=== PATIENT | female | born 1970 | race Hispanic/Latino ===

== ENCOUNTER 2018-09-05 05:46 | Day surgery (SDC) | payer OTHER ==
[2018-09-05] MEDS ORDERED: LACTATED RINGERS 1,000 ML IV SCH (06:22)
[2018-09-05] MEDS ORDERED: NACL BACTERIOSTATIC INFILTRATI ONE (06:34)
[2018-09-05] MEDS ORDERED: PROVENTIL IH NR (06:59)
[2018-09-05] MEDS ORDERED: VERSED IV NR (07:00)
--- NOTE | 2018-09-05 07:16 | Short Stay Summary ---
Short Stay Documentation Date of service: 09/05/18 Narrative H&P: Pt is a 47yo WF LMP 08/28/18 presents for a Hysteroscopy with endometrial biopsy. She could not tolerate the in-office endometrial biopsy due to cervical stenosis. She has uterine fibroids with prolonged heavy vaginal bleeding, and desires a Hysterectomy. - History Principal diagnosis: Uterine fibroids; Menorrhagia H&P: obtained from office Past Medical History: arthritis, diabetes, GERD, hypertension Past Surgical History: Other (Bilateral salpingectomy; I&D of abscess on buttock) Social history: no significant social history, , smoking - Allergies and Medications Current Medications: Allergies No Known Allergies Allergy (Verified 09/05/18 06:24) Home Medications Medication Instructions Recorded Confirmed Last Taken Type Albuterol Sulfate 1.25 mg IH Q6H PRN 09/04/18 09/05/18 09/05/18 History Gabapentin [Neurontin] 600 mg PO BID 09/04/18 09/05/18 09/04/18 History Losartan [Cozaar] 50 mg PO QDAY 09/04/18 09/05/18 09/05/18 History Metformin HCl [Metformin HCl ER] 1,000 mg PO BID 09/04/18 09/05/18 09/05/18 History glyBURIDE [Glyburide] 50 mg PO DAILY 09/04/18 09/05/18 09/05/18 History Active Medications Albuterol (Proventil) 2.5 mg IH PREOP NR Stop: 09/05/18 23:59 Lactated Ringer's (Lactated Ringers) 1,000 mls @ 75 mls/hr IV DIRECT DARLENE Stop: 09/05/18 23:59 Cefazolin Sodium (Ancef/Sterile Water 2 Gm/20 Ml) 2 gm in 20 mls @ 80 mls/hr IV PREOP NR; Protocol Midazolam HCl (Versed) 2 mg IV PREOP NR Stop: 09/05/18 23:59 - Physical exam General appearance: no acute distress Integumentary: no rash HEENT: Atraumatic Lungs: Clear to auscultation Breasts: deferred Heart: Regular rate Gastrointestinal: normal Female Genitourinary: deferred Extremities: no ischemia Neurological: Normal gait, Normal speech - Brief post op/procedure progress note Date of procedure: 09/05/18 Pre-op diagnosis: 1. Symptomatically uterine fibroids 2. Menorrhagia Post-op diagnosis: same Procedure: 1. Hysteroscopy 2. Dilatation and curettage Anesthesia: MAC Findings: A 10-12 weeks size uterus with moderate amounts of endometrial tissue Surgeon: BEATRIS BAILEY Estimated blood loss: minimal Pathology: list (endometrial curettings) Specimen disposition: to lab Condition: stable - Hospital course Hospital course: Unremarkable - Disposition Condition at discharge: Good Disposition: TO HOME OR SELFCARE - Discharge Diagnoses (1) Uterine fibroid Status: Acute Qualifiers: Uterine leiomyoma location: intramural and submucous Qualified Code(s): D25.1 - Intramural leiomyoma of uterus; D25.0 - Submucous leiomyoma of uterus (2) Menorrhagia with irregular cycle Status: Chronic (3) Cervical stenosis (uterine cervix) Status: Chronic Short Stay Discharge Plan Activity: no restrictions Diet: diabetic Follow up with: PRIMARY CAREMD [Primary Care Provider] - 7 Days BEATRIS BAILEY MD [Staff Physician] - 14 Days Prescriptions: Ibuprofen [Motrin] 800 mg PO Q8HR PRN #20 tablet PRN Reason: Pain, Moderate (4-6)
[2018-09-05] MEDS ORDERED: SILVER NITRATE TP ONE (07:19)
[2018-09-05] MEDS ORDERED: XYLOCAINE MPF 2% ONE (07:24)
[2018-09-05] MEDS ORDERED: SUBLIMAZE ONE ×2 (07:25→08:32)
[2018-09-05] MEDS ORDERED: DIPRIVAN 10 MG/ML IV ONE (07:25)
[2018-09-05] MEDS ORDERED: DECADRON ONE (07:31)
[2018-09-05] MEDS ORDERED: ZOFRAN ONE (07:31)
[2018-09-05 07:35] LABS: Hematocrit 38.4 % (30.3-42.9); Hemoglobin 12.8 gm/dl (10.1-14.3)
[2018-09-05] MEDS ORDERED: ANCEF/STERILE WATER 2 GM/20 ML 2 GM/20 ML SYRINGE IV NR (08:00)
[2018-09-05] MEDS ORDERED: NACL 0.9% IR ONE (08:20)
[2018-09-05] MEDS ORDERED: TORADOL ONE (08:41)
--- NOTE | 2018-09-05 08:43 | Anesthesia Day of Surgery ---
Anesthesia Day of Surgery - Day of Surgery Patient Examined: Yes Patient H&P Reviewed: Yes Patient is NPO: Yes
--- NOTE | 2018-09-05 08:43 | Anesthesia Consultation ---
Anesthesia Consult and Med Hx Date of service: 09/05/18 - Airway Anesthetic Teeth Evaluation: Poor (loose right lower molar) ROM Head & Neck: Adequate Mental/Hyoid Distance: Adequate Mallampati Class: Class II Intubation Access Assessment: Probably Good - Pulmonary Exam CTA: No (scattered wheezing) - Cardiac Exam Cardiac Exam: RRR - Pre-Operative Health Status ASA Pre-Surgery Classification: ASA3 Proposed Anesthetic Plan: General - Pulmonary Hx Smoking: Yes (0.5-1PPD) Hx Respiratory Symptoms: Yes (wheezing, uses albuterol neb prn) SOB: No Home Oxygen Therapy: No - Cardiovascular System Hx Hypertension: Yes (took losartan this morning) Hx Heart Attack/AMI: No Hx Percutaneous Transluminal Coronary Angioplasty (PTCA): No Hx Cardia Arrhythmia: No Hx Peripheral Vascular Disease: Yes - Central Nervous System Hx Seizures: No CVA: No Hx Psychiatric Problems: No - Gastrointestinal Hx Gastroesophageal Reflux Disease: Yes (well controlled; asymptomatic today) - Endocrine Hx Renal Disease: No Hx Liver Disease: No Hx Non-Insulin Dependent Diabetes: Yes (c/b peripheral neuropathy; took metformin and glyburide today) Hx Thyroid Disease: No - Other Systems Hx Alcohol Use: Yes (Occas) Hx Obesity: Yes - Additional Comments Anesthesia Medical History Comments: No hx anesthetic complications. Reports recent mildly productive cough. No dyspnea, fevers, chills. No respiratory distress on exam. Will give preop albuterol neb for wheezing. Patient took oral hypoglycemics this morning. Will check pre- and post-op glucose and treat hypoglycemia if necessary.
[2018-09-05] MEDS: SUBLIMAZE IV PRN ×2 (08:50→09:23)
--- NOTE | 2018-09-05 08:59 | Operative Report ---
Operative Report Operative Report: Date of procedure: 09/05/2018 Pre-operative diagnosis: 1. Symptomatic uterine fibroids 2. Menorrhagia 3. Cervical stenosis Post-operative diagnosis: Same Procedure name(s): 1. Hysteroscopy 2. Dilatation and curettage Surgeon: Eligio Pride MD Sex Therapist: None Anesthesia: Gen. mask by Dr. Miner EBL: Minimal less than 10 mL's Findings: A 10-12 week size uterus with moderate amounts of endometrial tissue Procedure: After the patient was correctly identified, she was prepped and draped in the usual sterile fashion and placed in dorsolithotomy position. First the bladder was emptied using straight catheter, and then the speculum was placed in the vaginal vault and the anterior lip of the cervix was grasped using single-tooth tenaculum. The uterus was sounded to 10 cm. Cervical os was dilated and the hysteroscope was introduced into the cervical canal. Cessation of endometrial cavity showed lush amounts of endometrial tissue, but no submucosal masses. The hysteroscope was then removed and the dilatation and curettage was then performed yielding lush amounts of endometrial tissue with minimal effort. The specimen was sent to pathology. At this point the procedure was considered complete. All instruments removed from the vagina. Patient tolerated the procedure well and was transferred to recovery in stable condition.
[2018-09-05 10:03] VITALS: BP 105/76
--- NOTE | 2018-09-05 12:01 | Post Anesthesia Evaluation ---
- Post Anesthesia Evaluation Patient Participated: Yes Airway Patent: Yes Stable Respiratory Function: Yes Nausea/Vomiting: No Temp > 96.8F: Yes Pain Manageable: Yes Adequeate Hydration: Yes Anesthesia Complications: No
== END 2018-09-05 10:10 | disposition home or self-care (01) ==
LOC: OR 05:46
PROVIDERS: ATTEND Obstetrics & Gynecology
DX: D25.9 Leiomyoma of uterus, unspecified (principal); N85.8 Other specified noninflammatory disorders of uterus; N92.0 Excessive and frequent menstruation with regular cycle; N88.2 Stricture and stenosis of cervix uteri; E11.51 Type 2 diabetes mellitus with diabetic peripheral angiopathy without gangrene; K21.9 Gastro-esophageal reflux disease without esophagitis; M17.0 Bilateral primary osteoarthritis of knee; F17.210 Nicotine dependence, cigarettes, uncomplicated; G43.909 Migraine, unspecified, not intractable, without status migrainosus; E66.9 Obesity, unspecified; Z68.30 Body mass index [BMI] 30.0-30.9, adult; Z90.721 Acquired absence of ovaries, unilateral; Z72.89 Other problems related to lifestyle; Z79.899 Other long term (current) drug therapy; Z79.84 Long term (current) use of oral hypoglycemic drugs; Z98.890 Other specified postprocedural states
CPT/HCPCS: 36415; 58558; 81025; 82962; 85014; 85018; 88305; A4217; J0690; J1100; J1885; J2250; J2405; J2704; J3010; J7120

== ENCOUNTER 2018-09-29 08:01 | Outpatient (CLI) | payer OTHER ==
[2018-09-29] MEDS ORDERED: KINEVAC IV ONE (09:28)
--- NOTE | 2018-09-29 12:02 | Nuclear Medicine Report ---
HEPATOBILIARY SCAN: History: Right upper quadrant abdominal pain. Comparison: None at this facility. Following the injection of the radionuclide, serial scanning was obtained over the right upper quadrant. Initial imaging of the liver demonstrates a relatively normal activity pattern. Progressive concentration of the radionuclide in the bile ducts, with filling of both the gallbladder and small bowel, is identified within a normal time period. The gallbladder ejection fraction measures 90%. The patient reports new pain and cramps during the infusion of CCK. IMPRESSION: The cystic duct is patent. Normal biliary to bowel transit time of the radiotracer. The gallbladder ejection fraction measures 90%. Symptomatology as described.
== END 2018-09-29 08:02 | disposition home or self-care (01) ==
LOC: NM 08:01
PROVIDERS: ATTEND Student in an Organized Health Care Education/Training Program
DX: R10.11 Right upper quadrant pain (principal); I10 Essential (primary) hypertension; K21.9 Gastro-esophageal reflux disease without esophagitis; M19.90 Unspecified osteoarthritis, unspecified site; E11.9 Type 2 diabetes mellitus without complications; F17.200 Nicotine dependence, unspecified, uncomplicated; Z72.89 Other problems related to lifestyle
CPT/HCPCS: 78227; A9537; J2805

== ENCOUNTER 2018-10-24 09:09 | Day surgery (SDC) | payer OTHER ==
[2018-10-24] MEDS ORDERED: XYLOCAINE MPF 2% ONE (10:22)
[2018-10-24] MEDS ORDERED: ZEMURON IV ONE ×2 (10:22→13:46)
[2018-10-24] MEDS ORDERED: SUBLIMAZE ONE (10:23)
[2018-10-24] MEDS ORDERED: DIPRIVAN 10 MG/ML IV ONE (10:23)
[2018-10-24 10:29] VITALS: BP 134/91
[2018-10-24 10:36] LABS: Hematocrit 44.1 % (30.3-42.9); Hemoglobin 14.9 gm/dl (10.1-14.3); Mean Corpuscular HGB Conc 34 % (30-34); Mean Corpuscular Volume 91 fl (79-97); Platelet Count 239 K/mm3 (140-440); Red Blood Count 4.83 M/mm3 (3.65-5.03); Red Cell Distribution Width 17.3 % (13.2-15.2)
[2018-10-24] MEDS ORDERED: ANCEF/STERILE WATER 2 GM/20 ML IV NR (11:00)
[2018-10-24] MEDS ORDERED: LACTATED RINGERS 1,000 ML IV SCH (11:00)
[2018-10-24] MEDS ORDERED: DILAUDID IV PRN (11:19)
[2018-10-24] MEDS ORDERED: ZOFRAN IV PRN (11:19)
[2018-10-24 14:37] LABS: Basophils % (Manual) 0 % (0.0-1.8); Platelet Estimate Consistent w Auto; RBC Morphology Normal; Total Cells Counted 100
== END 2018-10-24 09:10 | disposition home or self-care (01) ==
LOC: OR 09:09
PROVIDERS: ATTEND Obstetrics & Gynecology
DX: D25.9 Leiomyoma of uterus, unspecified (principal); F17.210 Nicotine dependence, cigarettes, uncomplicated; N88.2 Stricture and stenosis of cervix uteri; N92.1 Excessive and frequent menstruation with irregular cycle; E11.51 Type 2 diabetes mellitus with diabetic peripheral angiopathy without gangrene; G43.909 Migraine, unspecified, not intractable, without status migrainosus; E11.42 Type 2 diabetes mellitus with diabetic polyneuropathy; I10 Essential (primary) hypertension; K21.9 Gastro-esophageal reflux disease without esophagitis; E66.9 Obesity, unspecified; M19.90 Unspecified osteoarthritis, unspecified site; Z53.8 Procedure and treatment not carried out for other reasons; Z72.89 Other problems related to lifestyle; Z79.899 Other long term (current) drug therapy; Z79.84 Long term (current) use of oral hypoglycemic drugs; Z68.30 Body mass index [BMI] 30.0-30.9, adult; Z98.890 Other specified postprocedural states
CPT/HCPCS: 36415; 81025; 82962; 85007; 85025; 86850; 86900; 86901; J7120; J2704; J3010

== ENCOUNTER 2018-12-12 08:35 | Observation (INO) | payer OTHER ==
--- NOTE | 2018-12-12 10:39 | Anesthesia Consultation ---
Anesthesia Consult and Med Hx Date of service: 12/12/18 - Airway Anesthetic Teeth Evaluation: Good ROM Head & Neck: Adequate Mental/Hyoid Distance: Adequate Mallampati Class: Class II Intubation Access Assessment: Good - Pulmonary Exam CTA: Yes - Cardiac Exam Cardiac Exam: RRR - Pre-Operative Health Status ASA Pre-Surgery Classification: ASA2 Proposed Anesthetic Plan: General - Pulmonary Hx Smoking: Yes (1 PPD X 30 YRS) Hx Respiratory Symptoms: Yes (wheezing, uses albuterol neb prn, used nebuliser at home today) Hx Sleep Apnea: No (SHAY PRE SCREEN HIGH RISK) - Cardiovascular System Hx Hypertension: Yes (x 6 yrs) Hx Cardia Arrhythmia: No Hx Peripheral Vascular Disease: Yes - Central Nervous System Hx Psychiatric Problems: No - Gastrointestinal Hx Gastroesophageal Reflux Disease: Yes (well controlled; asymptomatic today) - Endocrine Hx Non-Insulin Dependent Diabetes: Yes (c/b peripheral neuropathy; took metformin and glyburide today) Hx Thyroid Disease: No - Other Systems Hx Alcohol Use: Yes (Occas) Hx Cancer: No
--- NOTE | 2018-12-12 10:40 | Anesthesia Day of Surgery ---
Anesthesia Day of Surgery - Day of Surgery Patient Examined: Yes Patient H&P Reviewed: Yes Patient is NPO: Yes
[2018-12-12] MEDS ORDERED: NACL 0.9% 1000 ML 1,000 ML ONE (10:45)
[2018-12-12] MEDS ORDERED: VERSED ONE ×3 (10:57→16:39)
[2018-12-12] MEDS ORDERED: SUBLIMAZE ONE ×4 (10:57→14:55)
[2018-12-12] MEDS ORDERED: XYLOCAINE 1% 20 mL ONE (10:58)
[2018-12-12] MEDS ORDERED: MARCAINE-EPI 0.5%-1:200,000 INFILTRATI ONE (10:59)
[2018-12-12] MEDS ORDERED: ANCEF/STERILE WATER 2 GM/20 ML 2 GM/20 ML SYRINGE IV NR (11:00)
[2018-12-12] MEDS ORDERED: PEPCID IV NR (11:00)
[2018-12-12] MEDS ORDERED: NACL 0.9% 1000 ML 1,000 ML IV SCH (11:00)
--- NOTE | 2018-12-12 11:02 | History and Physical Report ---
History of Present Illness Date of examination: 12/12/18 Chief complaint: Symptomatic uterine fibroids History of present illness: Ms. Diaz is a 48-year-old white female LMP presents for surgical evaluation and treatment of symptomatic uterine fibroids. She complains of pelvic pain and dysmenorrhea. Pelvic ultrasound showed an enlarged uterus measuring 9.8 x 5.6 x 4.4 cm with a subserosal fibroid measuring 3.2 x 3.6 x 3.1 cm. Endometrial biopsy showed an disordered proliferative endometrium. She desires a Robotic-Assisted Total Hysterectomy with ovarian conservation. 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 Family/Genetic History: none Social history: no significant social history, Medications and Allergies Allergies Allergy/AdvReac Type Severity Reaction Status Date / Time No Known Allergies Allergy Verified 10/23/18 11:07 Home Medications Medication Instructions Recorded Confirmed Last Taken Type Albuterol Sulfate 1.25 mg IH Q6H PRN 09/04/18 12/12/18 12/11/18 06:00 History Gabapentin [Neurontin] 600 mg PO BID 09/04/18 12/12/18 12/11/18 06:00 History Losartan [Cozaar] 50 mg PO QDAY 09/04/18 12/12/18 12/12/18 06:00 History Metformin HCl [Metformin HCl ER] 1,000 mg PO BID 09/04/18 12/12/18 12/11/18 18:00 History glyBURIDE [Glyburide] 50 mg PO DAILY 09/04/18 12/12/18 12/11/18 18:00 History Acetaminophen/Codeine [Tylenol 1 tab PO Q6H PRN #20 tab 09/05/18 12/12/18 12/11/18 21:00 Rx /Codeine # 3 tab] Ibuprofen [Motrin] 800 mg PO Q8HR PRN #20 tablet 09/05/18 12/12/18 10/18/18 09:00 Rx Excedrin Migrain Relief 2 tab PO PRN PRN 12/01/18 12/12/18 10/18/18 09:00 History Active Meds: Active Medications Famotidine (Pepcid) 20 mg IV PREOP NR Stop: 12/12/18 23:59 Sodium Chloride (Nacl 0.9% 1000 Ml) 1,000 mls @ 100 mls/hr IV DIRECT DARLENE Review of Systems All systems: negative - Physical Exam Breasts: Positive: deferred Cardiovascular: Regular rate Lungs: Positive: Clear to auscultation Abdomen: Positive: normal appearance Genitourinary (Female): Positive: normal external genitalia Vagina: Positive: normal moisture Uterus: Positive: enlarged Extremities: Positive: normal Results Result Diagrams: 12/13/18 06:10 12/13/18 06:10 All other labs normal. Ultrasound: report reviewed Assessment and Plan - Patient Problems (1) Uterine fibroid Onset Date: 12/12/18 Current Visit: No Status: Acute Qualifiers: Uterine leiomyoma location: intramural, submucous, and subserous Qualified Code(s): D25.1 - Intramural leiomyoma of uterus; D25.0 - Submucous leiomyoma of uterus; D25.2 - Subserosal leiomyoma of uterus Plan to address problem: A: Symptomatic uterine fibroids Dysmenorrhea Chronic hypertension NIDDM P: Admit for a Robotic Assisted Total Hysterectomy with Bilateral Sa lpingectomy BP and BS control (2) Dysmenorrhea Onset Date: 12/12/18 Current Visit: Yes Status: Acute (3) Hypertension Onset Date: 12/12/18 Current Visit: Yes Status: Chronic Qualifiers: Hypertension type: essential hypertension Qualified Code(s): I10 - Essential (primary) hypertension (4) Diabetes mellitus Onset Date: 12/12/18 Current Visit: Yes Status: Chronic Qualifiers: Diabetes mellitus type: type 2 Diabetes mellitus complication status: with neurologic complications
[2018-12-12 11:08] LABS: Basophils # (Auto) 0.1 K/mm3 (0.0-0.1); Basophils % (Auto) 0.9 % (0.0-1.8); Eosinophils # (Auto) 0.3 K/mm3 (0.0-0.4); Eosinophils % (Auto) 2.5 % (0.0-4.3); Hematocrit 46.3 % (30.3-42.9); Hemoglobin 15.8 gm/dl (10.1-14.3); Lymphocytes # (Auto) 2.9 K/mm3 (1.2-5.4); Lymphocytes % (Auto) 25.5 % (13.4-35.0); Mean Corpuscular HGB Conc 34 % (30-34); Mean Corpuscular Volume 93 fl (79-97); Monocytes % (Auto) 8.4 % (0.0-7.3); Platelet Count 257 K/mm3 (140-440); Red Cell Distribution Width 15.1 % (13.2-15.2)
[2018-12-12] MEDS ORDERED: MARCAINE-EPI 0.25%-1:200,000 INFILTRATI ONE ×2 (11:32→16:29)
[2018-12-12] MEDS ORDERED: METHYLENE BLUE ONE (11:33)
[2018-12-12 12:08] LABS: BUN/Creatinine Ratio 22; Blood Urea Nitrogen 13 mg/dL (7-17); Calcium 9.3 mg/dL (8.4-10.2); Hemolysis Index 7
[2018-12-12] MEDS ORDERED: DIPRIVAN 10 MG/ML IV ONE (12:22)
[2018-12-12] MEDS ORDERED: ZOFRAN ONE (12:22)
[2018-12-12] MEDS ORDERED: DECADRON ONE ×2 (12:22→16:28)
[2018-12-12] MEDS ORDERED: ZEMURON IV ONE (12:22)
[2018-12-12] MEDS ORDERED: XYLOCAINE MPF 2% ONE (12:22)
[2018-12-12] MEDS ORDERED: TORADOL ONE (12:22)
[2018-12-12] MEDS ORDERED: NEOSPORIN GU IR ONE (13:42)
[2018-12-12] MEDS ORDERED: NACL 0.9% IR ONE ×2 (13:42)
[2018-12-12] MEDS ORDERED: MILK OF MAGNESIA PO PRN (14:59)
[2018-12-12] MEDS ORDERED: D50W (25GM) Syringe IV PRN (14:59)
[2018-12-12] MEDS ORDERED: TYLENOL PO PRN (14:59)
[2018-12-12] MEDS ORDERED: NORCO 5/325 PO PRN (14:59)
[2018-12-12] MEDS ORDERED: SODIUM CHLORIDE FLUSH SYRINGE 10 ML IV PRN (14:59)
[2018-12-12] MEDS ORDERED: ZOFRAN IV PRN (14:59)
--- NOTE | 2018-12-12 15:13 | Operative Report ---
Operative Report Operative Report: Date of procedure: 12/12/2018 Pre-operative diagnosis: 1. Symptomatic uterine fibroids 2. Dysmenorrhea 3 . Chronic hypertension 4. Diabetes mellitus Post-operative diagnosis: Same Procedure name(s): 1. Robotic-assisted total hysterectomy 2. Bilateral salpingectomy Surgeon: Eligio Pride MD Risk Control Specialist: Tri Crowley CSA Anesthesia: EMILIA Block followed by general endotracheal intubation EBL: 100 mL Findings: A 12-14 week size multiple myomatous uterus with absent right fallopian tube and normal left fallopian tube. Normal cystic ovaries bilaterally. Procedure: After the patient's first correctly identified she was prepped and draped in the usual sterile fashion and placed in the dorsolithotomy position. The bladder was first catheterized using Mccurdy catheter and the speculum was placed in the vagina and the anterior lip of the cervix was grasped using a single-tooth tenaculum, and the medium Vesicare cup was placed. The tenaculum and speculum was then removed from the vagina and attention was then turned to the abdomen. The skin knife was used to make a small incision approximately 5 cm above the umbilicus through which a 12 mm trocar was placed under direct visualization. After adequate amount of abdominal insufflation visualization of the pelvic organs found the uterus to be enlarged with a large fundal fibroid and the left fallopian tube was found to be normal, and the right fallopian tube was absent. A right and left paramedian incision was made through which the 8 mm trochars were placed under direct visualization and a 5 mm trocar was placed in the right lower quadrant. The patient was then placed in steep Trendelenburg positioning and the robot was docked on the patient's left side. After all the robotic ports were connected and adequate functioning of the robotic arms were tested the surgeon then proceeded to the console to begin the hysterectomy. First the left round ligament was grasped, cauterized and cut, the left utero- ovarian ligaments were grasped, cauterized and cut, and the left fallopian tube also grasped, cauterized and cut along the mesosalpinx, thus freeing the left ovary from the left uterine sidewall. The same procedure was performed on the right. The right round ligament was grasped, cauterized and cut, the right ut ero-ovarian ligaments were grasped, cauterized and cut, thus freeing the right ovary from the right uterine sidewall. The bladder flap was taken down anteriorly and the uterine vessels were grasped, cauterized and cut bilaterally. The cardinal ligaments were sequentially grasped, cauterized and cut down to the level of the uterosacral ligaments. At this time the posterior colpotomy was performed over the Vcare cup, and the cervix was circumscribed beginning posteriorly and meeting anteriorly until the cervix was freed. The cervix and uterus was then removed through the vagina and sent to pathology. The vaginal cuff was then closed using 2-0 Vloc suture in a running fashion. Irrigation was then performed and after good hemostasis was achieved the procedure was considered complete. The Tisseel sealant was then sprayed across the vaginal cuff site, and after excellent hemostasis was assured Interceed was placed across the vaginal cuff site. All instruments were then removed from the abdominal cavity. And each incision was closed using 0 Vicryl suture in a [id number] configuration on the fascia followed by 4-0 Monocryl suture in a sub-cuticular fashion on the skin. Each incision was also infiltrated using 0.5% Marcaine solution. The vaginal pack was removed. The patient tolerated the procedure well and was transported to the recovery room in stable condition.
[2018-12-12] MEDS ORDERED: DILAUDID ONE (15:25)
[2018-12-12] MEDS: DILAUDID IV PRN ×2 (15:30→15:40)
[2018-12-12] MEDS ORDERED: VERSED IV ONE ×3 (15:44→17:06)
[2018-12-12] MEDS ORDERED: BENADRYL ONE (16:03)
[2018-12-12] MEDS ORDERED: DEMEROL ONE ×2 (16:04→16:25)
[2018-12-12] MEDS ORDERED: DEMEROL IV PRN ×2 (16:08→16:25)
[2018-12-12] MEDS: D5LR 1,000 ML IV SCH ×2 (16:35→19:52)
[2018-12-12] MEDS ORDERED: BENADRYL IV ONE (17:00)
[2018-12-12] MEDS ORDERED: TORADOL IV SCH (18:00)
[2018-12-12] MEDS ORDERED: NUBAIN IV STA (19:00)
[2018-12-12] MEDS ORDERED: VALIUM IV ONE (19:52)
[2018-12-12] MEDS: TYLENOL PO SCH (20:02)
[2018-12-12] MEDS: ANCEF/NS 1 GM/50 ML 1 GM/50 ML BAG IV SCH (20:04)
[2018-12-12] MEDS: TORADOL IV SCH (21:37)
[2018-12-12] MEDS: NEURONTIN PO SCH (22:05)
[2018-12-13] MEDS: PERCOCET 5/325 PO PRN ×2 (00:51→08:55)
[2018-12-13] MEDS: HumuLIN R SUB-Q SCH ×2 (00:52→06:24)
[2018-12-13] MEDS: TORADOL IV SCH (04:13)
[2018-12-13] MEDS: ANCEF/NS 1 GM/50 ML 1 GM/50 ML BAG IV SCH (04:13)
[2018-12-13] MEDS ORDERED: PROVENTIL IH ONE (04:44)
[2018-12-13] MEDS ORDERED: PROVENTIL IH PRN (05:35)
[2018-12-13] MEDS: TYLENOL PO SCH ×2 (06:00)
[2018-12-13 06:21] LABS: Hematocrit 41.6 % (30.3-42.9)
[2018-12-13 06:45] LABS: BUN/Creatinine Ratio 11; Blood Urea Nitrogen 8 mg/dL (7-17); Calcium 8.2 mg/dL (8.4-10.2); Hemolysis Index 27
--- NOTE | 2018-12-13 09:27 | Progress Note ---
Assessment and Plan - Patient Problems (1) Uterine fibroid Onset Date: 12/12/18 Current Visit: No Status: Resolved Qualifiers: Uterine leiomyoma location: intramural, submucous, and subserous Qualified Code(s): D25.1 - Intramural leiomyoma of uterus; D25.0 - Submucous leiomyoma of uterus; D25.2 - Subserosal leiomyoma of uterus (2) Dysmenorrhea Onset Date: 12/12/18 Current Visit: Yes Status: Resolved (3) Hypertension Onset Date: 12/12/18 Current Visit: Yes Status: Chronic Qualifiers: Hypertension type: essential hypertension Qualified Code(s): I10 - Essential (primary) hypertension (4) Diabetes mellitus Onset Date: 12/12/18 Current Visit: Yes Status: Chronic Qualifiers: Diabetes mellitus type: type 2 Diabetes mellitus complication status: with neurologic complications (5) Status post robot-assisted surgical procedure Onset Date: 12/13/18 Current Visit: Yes Status: Resolved Plan to address problem: A: S/P RATH - POD #1 Doing well Chronic hypertension - stable NIDDM - stable P: May go home today Follow up with Family Medicine re: blood sugar control Subjective - Subjective Date of service: 12/13/18 Principal diagnosis: s/p RATH - POD #1 Interval history: Ms. Diaz is s/p a Robotic-Assisted Total Hysterectomy with Bilateral salpingectomy, and feeling well. She is tolerating a liquid diet without nausea or vomiting, ambulating and voiding without difficulty. Patient reports: appetite normal, voiding normally, pain well controlled, flatus, ambulating normally, no dizzy ambulation, no nauseated Objective - Vital Signs Latest vital signs: Vital Signs Temp Pulse Pulse Pulse Pulse Resp Resp 12/13/18 07:30 88 18 12/13/18 04:55 80 78 18 12/13/18 04:45 12/13/18 04:40 12/13/18 04:31 98.4 F 79 16 12/12/18 23:34 98.1 F 69 17 12/12/18 21:17 98.3 F 74 20 12/12/18 19:45 89 18 12/12/18 18:30 97.7 F 92 H 18 12/12/18 17:45 98.0 F 84 16 12/12/18 17:30 84 11 L 12/12/18 17:15 97 H 15 12/12/18 17:00 87 12 12/12/18 16:45 70 14 12/12/18 16:30 73 12/12/18 16:25 12 12/12/18 16:17 98.5 F 12/12/18 16:16 73 24 12/12/18 16:00 86 20 12/12/18 15:45 74 18 12/12/18 15:40 16 12/12/18 15:30 77 18 12/12/18 15:15 75 14 12/12/18 15:10 61 13 12/12/18 15:05 73 16 12/12/18 15:00 65 16 12/12/18 14:56 97.3 F L 69 16 12/12/18 11:53 69 16 12/12/18 11:38 79 16 12/12/18 11:34 71 14 12/12/18 11:23 73 11 L 12/12/18 11:09 72 11 L 12/12/18 10:20 98 F 76 16 12/12/18 10:15 98 F 76 16 Resp BP BP Pulse Ox 12/13/18 07:30 12/13/18 04:55 18 12/13/18 04:45 97 12/13/18 04:40 97 12/13/18 04:31 112/71 96 12/12/18 23:34 149/88 94 12/12/18 21:17 154/87 92 12/12/18 19:45 12/12/18 18:30 141/88 92 12/12/18 17:45 160/95 97 12/12/18 17:30 160/95 97 12/12/18 17:15 146/80 97 12/12/18 17:00 154/86 99 12/12/18 16:45 159/94 97 12/12/18 16:30 158/86 99 12/12/18 16:25 12/12/18 16:17 12/12/18 16:16 164/93 99 12/12/18 16:00 159/91 98 12/12/18 15:45 159/78 99 12/12/18 15:40 12/12/18 15:30 182/99 100 12/12/18 15:15 163/85 100 12/12/18 15:10 167/91 100 12/12/18 15:05 164/82 100 12/12/18 15:00 159/88 100 12/12/18 14:56 185/105 100 12/12/18 11:53 108/63 94 12/12/18 11:38 114/59 94 12/12/18 11:34 102/80 95 12/12/18 11:23 134/74 97 12/12/18 11:09 121/76 96 12/12/18 10:20 149/83 95 12/12/18 10:15 149/83 95 Intake and Output 12/12/18 12/13/18 12/13/18 22:59 06:59 14:59 Intake Total 820.417 Output Total 1200 1350 Balance -379.583 -1350 Intake: IV 460.417 ANCEF/NS 1 GM/50 ML 1 gm 50 In 50 ml @ 100 mls/hr IV Q8H DARLENE Rx#:[id number] D5lr 1,000 ml @ 125 mls/ 410.417 hr IV DIRECT DARLENE Rx#: [id number] Oral 360 Output: Urine 1200 1350 Indwelling Catheter 900 Uretheral (Mccurdy) 150 Void 1350 Other: Total, Intake Amount 360 Total, Output Amount 900 500 Voiding Method Toilet Toilet Toilet Weight 90.718 kg - Exam Abdomen: Present: normal appearance, soft Extremities: Present: normal Incision: Present: normal, dry, intact - Labs Labs: Abnormal lab results 12/12/18 12/12/18 12/12/18 Range/Units 10:40 10:40 10:56 WBC 11.5 H (4.5-11.0) K/mm3 Hgb 15.8 H (10.1-14.3) gm/dl Hct 46.3 H (30.3-42.9) % [place] % (Auto) 8.4 H (0.0-7.3) % [place] # 1.0 H (0.0-0.8) K/mm3 Sodium 136 L (137-145) mmol/L Chloride 97.1 L (98-107) mmol/L Creatinine 0.6 L (0.7-1.2) mg/dL Glucose 180 H (65-100) mg/dL POC Glucose 175 H (70-105) Calcium (8.4-10.2) mg/dL 12/12/18 12/13/18 12/13/18 Range/Units 15:20 00:47 06:01 WBC (4.5-11.0) K/mm3 Hgb (10.1-14.3) gm/dl Hct (30.3-42.9) % [place] % (Auto) (0.0-7.3) % [place] # (0.0-0.8) K/mm3 Sodium (137-145) mmol/L Chloride (98-107) mmol/L Creatinine (0.7-1.2) mg/dL Glucose (65-100) mg/dL POC Glucose 165 H 374 H 323 H (70-105) Calcium (8.4-10.2) mg/dL 12/13/18 Range/Units 06:10 WBC (4.5-11.0) K/mm3 Hgb (10.1-14.3) gm/dl Hct (30.3-42.9) % [place] % (Auto) (0.0-7.3) % [place] # (0.0-0.8) K/mm3 Sodium 135 L (137-145) mmol/L Chloride (98-107) mmol/L Creatinine (0.7-1.2) mg/dL Glucose 357 H (65-100) mg/dL POC Glucose (70-105) Calcium 8.2 L (8.4-10.2) mg/dL
--- NOTE | 2018-12-13 09:50 | Discharge Summary ---
Providers - Providers Date of Admission: 12/12/18 14:59 Date of discharge: 12/13/18 Attending physician: BEATRIS BAILEY Primary care physician: HODAN LEY Hospitalization Reason for admission: other (Symptomatic uterine fibroids; Dysmenorrhea) Procedure: other (Robotic Assisted Total Hysterectomy with Bilateral Salpingectomy) Laceration: none Incision: normal, dry, intact Other procedures: none complications: none Discharge diagnosis: other (s/p RATH) Hospital course: Ms. Diaz is a 48-year-old white female LMP who presented for surgical evaluation and treatment of symptomatic uterine fibroids. She complained of pelvic pain and dysmenorrhea. Pelvic ultrasound showed an enlarged uterus measuring 9.8 x 5.6 x 4.4 cm with a subserosal fibroid measuring 3.2 x 3.6 x 3.1 cm. She underwent an uncomplicated Robotic-Assisted Total Hysterectomy with Bilateral salpingectomy, and by post-op day #1 she was tolerating a reg diet without nausea or vomiting, ambulating and voiding without difficulty. She was therefore discharged to home on POD #1 in stable condition. Condition at discharge: Good Disposition: DC-01 TO HOME OR SELFCARE - Discharge Diagnoses (1) Uterine fibroid Status: Resolved Qualifiers: Uterine leiomyoma location: intramural, submucous, and subserous Qualified Code(s): D25.1 - Intramural leiomyoma of uterus; D25.0 - Submucous leiomyoma of uterus; D25.2 - Subserosal leiomyoma of uterus (2) Dysmenorrhea Status: Resolved (3) Hypertension Status: Chronic Qualifiers: Hypertension type: essential hypertension Qualified Code(s): I10 - Essential (primary) hypertension (4) Diabetes mellitus Status: Chronic Qualifiers: Diabetes mellitus type: type 2 Diabetes mellitus complication status: with neurologic complications Plan - Discharge Medications Prescriptions: Ibuprofen [Motrin 800 MG tab] 800 mg PO Q8HR PRN #30 tablet PRN Reason: Pain, Mild (1-3) oxyCODONE /ACETAMINOPHEN [Percocet 5/325 mg] 1 tab PO Q6H PRN #30 tablet PRN Reason: Pain, Moderate (4-6) - Provider Discharge Summary Activity: routine, no sex for 6 weeks, no heavy lifting 4 weeks, no strenuous exercise Diet: routine Instructions: routine Additional instructions: [] Smoking cessation referral if applicable(refer to patient education folder for contact #) [] Refer to [facility]'s [facility] Booklet Call your doctor immediately for: * Fever > 100.5 * Heavy vaginal bleeding ( >1 pad per hour) * Severe persistent headache * Shortness of breath * Reddened, hot, painful area to leg or breast * Drainage or odor from incision. * Keep incision clean and dry at all times and follow doctor's instructions regarding bathing/showering - Follow up plan Follow up: HODAN LEY MD [Primary Care Provider] - 7 Days BEATRIS BAILEY MD [Staff Physician] - 14 Days Forms: DC Identification Form, Discharge Signature Page
[2018-12-13] MEDS: NEURONTIN PO SCH (10:44)
[2018-12-13 12:56] VITALS: BP 124/92
== END 2018-12-13 12:15 | disposition home or self-care (01) ==
LOC: OR 08:35 → OB 14:59
PROVIDERS: ADMIT Obstetrics & Gynecology; ATTEND Obstetrics & Gynecology
DX: D25.9 Leiomyoma of uterus, unspecified (principal); N94.6 Dysmenorrhea, unspecified; E11.9 Type 2 diabetes mellitus without complications; I10 Essential (primary) hypertension; Z98.890 Other specified postprocedural states
CPT/HCPCS: 36415; 58554; 64450; 80048; 81025; 82962; 85014; 85018; 85025; 86850; 86900; 86901; 88307; 94640; 96365; 96366; 96372; 96375; 96376; A4217; C1765; C9250; G0378; J0690; J1100; J1170; J1200; J1885; J2175; J2250; J2300; J2405; J2704; J3010; J3360; J7030; J7121; S2900; J1815; Q9968